=== PATIENT | female | born 1995 | race Caucasian/White ===

== ENCOUNTER → 2016-06-21 | Outpatient (CLI) | payer OTHER ==
[~2016-06-21] VITALS: Ht 162.6 cm; Wt 88.5 kg
[~2016-06-21] MED LIST: ACET500C PO; AUGM875T PO; DICY10CA12 PO; INSULIN HUMAN REGULAR 1,000 UNITS/10 ML VIAL SQ PRN; LACTATED RINGER'S 1000 ML IV SCH; METOPROLOL TARTRATE 25 MG TAB PO PRN; MIDAZOLAM HCL 2 MG/2 ML VIAL IV ONE; PROPOFOL 200 MG/20 ML AMP IV ONE; SODIUM CHLORID 0.9% 500 ML IV SCH; ZOFR4TAB PO
[2016-06-21 08:24] VITALS: BP 118/85; PULSE 83; RESP 20; TEMP 98.2; O2SAT 100
--- NOTE | 2016-06-21 10:22 | GIPROC ---
[facility] [address] [facility]. [facility], [address] EGD PROCEDURE REPORT EXAM DATE: 06/21/2016 PATIENT NAME: Mirta Snyder MR#: [id number] BIRTHDATE: 1995 STATUS: outpatient ATTENDING: Christopher Torre MD DOMESTIC LAUNDRY WORKER: INDICATIONS: The patient is a 21 yr old female here for an EGD due to epigastric abdominal pain and abdominal pain. PROCEDURE PERFORMED: EGD w/ biopsy MEDICATIONS: None and Per Anesthesia. ASA CLASS: Class I PHYSICAL EXAM: normal CONSENT: The patient understands the risks and benefits of the procedure and understands that these risks include, but are not limited to: sedation, allergic reaction, infection, perforation and/or bleeding. Alternative means of evaluation and treatment include, among others: physical exam, x-rays, and/or surgical intervention. The patient elects to proceed with this endoscopic procedure. DESCRIPTION OF PROCEDURE: for proper function. Hand hygiene and appropriate measures for infection prevention was taken. After the risks, benefits and alternatives of the procedure were thoroughly explained, Informed consent was verified, confirmed and timeout was successfully executed by the treatment team. The Team Everest [id number] endoscope was introduced through the mouth and advanced to the second portion of the duodenum. The instrument was slowly withdrawn as the mucosa was fully examined. ESOPHAGUS: The esophagus was otherwise normal. STOMACH: There was mild gastritis in the gastric antrum. Multiple biopsies were performed using cold forceps. The stomach otherwise appeared normal. DUODENUM: The duodenal mucosa appeared normal in the ampulla, duodenal bulb, and 2nd part duodenum. Cold forcep biopsies were taken in the second portion and cold forceps biopsies were taken in the bulb and second portion. Retroflexed views revealed no abnormalities The gastroscope was then slowly withdrawn and removed. COMPLICATIONS: There were no complications. IMPRESSIONS: 1. The esophagus was otherwise normal 2. There was mild gastritis in the gastric antrum; multiple biopsies were performed 3. The stomach otherwise appeared normal 4. Normal duodenal mucosa in the ampulla, duodenal bulb, and 2nd part duodenum 5. Retroflexed views revealed no abnormalities RECOMMENDATIONS: 1. Await biopsy results. Biopsy results will not be ready for 7-10 days. If you don't hear from us in two weeks, call our office for biopsy results. 2. Continue PPI PATIENT CONDITION: stable DISPOSITION: Home REPEAT EXAM: NONE Christopher Torre MD eSigned: Christopher Torre MD 06/21/2016 10:21 AM cc: PATIENT NAME: Mirta Snyder MR#: [id number]
--- NOTE | 2016-06-21 10:39 | GIPROC ---
[facility] [address] [facility]. [facility], [id number] COLONOSCOPY PROCEDURE REPORT EXAM DATE: 06/21/2016 PATIENT NAME: Mirta Snyder MR #: [id number] BIRTHDATE: 1995 ENDOSCOPIST: Christopher Torre MD ORDER #: [id number] CHAIR TRIMMER: Issac Lynn and David Jauregui STATUS: outpatient INDICATIONS: The patient is a 21 yr old female here for a colonoscopy due to blood in stool and constipation PROCEDURE PERFORMED: Colonoscopy with biopsy MEDICATIONS: None and Per Anesthesia. PREP QUALITY: good PREP TYPE:SuPrep ESTIMATED BLOOD LOSS: None CONSENT: The patient understands the risks and benefits of the procedure and understands that these risks include, but are not limited to: sedation, allergic reaction, infection, perforation and/or bleeding. Alternative means of evaluation and treatment include, among others: physical exam, x-rays, and/or surgical intervention. The patient elects to proceed with this endoscopic procedure. medical equipment was checked for proper function. Hand hygiene and appropriate measures for infection prevention was taken. After the risks, benefits and alternatives of the procedure were thoroughly explained, Informed consent was verified, confirmed and timeout was successfully executed by the treatment team. A digital exam was performed and revealed no abnormalities of the rectum The Pentax [id number] endoscope was introduced through the anus and advanced to the cecum, which was identified by both the appendix and ileocecal valve. The instrument was then slowly withdrawn as the colon was fully examined. COLON FINDINGS: The colonic mucosa appeared normal in the rectum, sigmoid colon, descending colon, at the splenic flexure, in the transverse colon, at the hepatic flexure, in the ascending colon, at the appendiceal orifice, cecum, ileocecal valve, and in the terminal ileum. Mild inflammation in the rectum, Multiple cold forceps biopsies taken. Retroflexed views revealed internal hemorrhoids and Retroflexed views revealed small internal hemorrhoids The scope was then completely withdrawn from the patient and the procedure terminated. PROCEDURE WITHDRAWAL TIME:6minutes ADVERSE EVENTS: There were no complications. IMPRESSIONS: 1. The colonic mucosa appeared normal in the rectum, sigmoid colon, descending colon, at the splenic flexure, in the transverse colon, at the hepatic flexure, in the ascending colon, at the appendiceal orifice, cecum, ileocecal valve, and in the terminal ileum 2. Mild inflammation in the rectum, Multiple cold forceps biopsies taken 3. Retroflexed views revealed internal hemorrhoids 4. Retroflexed views revealed small internal hemorrhoids 5. Was performed 6. Revealed no abnormalities of the rectum RECOMMENDATIONS: 1. High fiber diet 2. Await biopsy results. Biopsy results will not be ready for 7-10 days. If you don't hear from us in two weeks, call our office for results. RECALL: NONE Christopher Torre MD eSigned: Christopher Torre MD 06/21/2016 10:39 AM cc: PATIENT NAME: Mirta Snyder MR#: [id number]
[2016-06-21 11:30] VITALS: BP 113/72; PULSE 82; RESP 18; O2SAT 100
== END ==
LOC: HEND 07:47
PROVIDERS: ATTEND Internal Medicine Gastroenterology
DX: K29.70 Gastritis, unspecified, without bleeding (principal); K52.9 Noninfective gastroenteritis and colitis, unspecified; K62.89 Other specified diseases of anus and rectum; K64.8 Other hemorrhoids; K92.1 Melena
CPT/HCPCS: 00740; 43239; 45380; 88305; 88312; J2250; J3010